=== PATIENT | female | born 1950 | race Caucasian/White ===

== ENCOUNTER → 2016-12-28 | Outpatient (CLI) | payer MEDICAID, MEDICARE ==
--- NOTE | 2017-01-03 11:37 | WOMENS IMAGING REPORT ---
EXAM DESCRIPTION: 3D SCREENING MAMMO BILAT COMPLETED DATE/TIME: 12/28/2016 10:58 am REASON FOR STUDY: Z12.31, ROUTINE SCREENING MAMMO COMPARISON: None. TECHNIQUE: Standard craniocaudal and mediolateral oblique views of each breast recorded using digita l acquisition and breast tomosynthesis. LIMITATIONS: None. FINDINGS: Findings present which are benign by mammographic criteria. No suspicious masses, calcifi cations or architectural distortion. Pertinent benign findings: Benign calcifications. Read with the assistance of CAD. .[facility] - R2 Cenova Version 1.3 .[facility] - R2 Cenova Version 1.3 .[facility] - R2 Cenova Version 2.4 .[facility] [place] Cenova Version 2.4 .[facility] - R2 Tube Wrapper Version 9.2 Benign mammographic findings may include one or more of the following: Smooth masses, popcorn/rim/co arse calcifications, asymmetries, post-procedure changes, and lesions with long-standing stability. IMPRESSION: BENIGN MAMMOGRAPHIC FINDINGS. BIRADS 2 BREAST DENSITY: c. The breasts are heterogeneously dense, which may obscure small masses. BIRAD: 2 BENIGN FINDING(S) RECOMMENDATION: RECOMMENDATION: ROUTINE SCREENING COMMENT: The patient has been notified of the results by letter per SA requirements. Additional no tification policies are in place for contacting patient with suspicious or incomplete findings. Quality ID #[id number]: The [employer] recommends an annual screening mammogram for women aged 40 years or over. This facility utilizes a reminder system to ensure that all patients receive reminder letters, and/or direct phone calls for appointments. This includes reminders for routine scr eening mammograms, diagnostic mammograms, or other Breast Imaging Interventions when appropriate. Th is patient will be placed in the appropriate reminder system. The [employer] (ACR) has developed recommendations for screening MRI of the breast s in certain patient populations, to be used in conjunction with mammography. Breast MRI surveillanc e may be appropriate for women with more than 20% lifetime risk of developing breast cancer as deter mined by genetic testing, significant family history of the disease, or history of mantle radiation f or Hodgkins Disease. ACR Practice Guidelines 2008. DBT Technology DBT is a type of tomographic mammography. With conventional mammography, overlapping breast tissue ma y make lesions difficult to detect, even with good compression. DBT uses an x-ray tube that rotates a round the breast, taking images at different angles. These images are then combined to create thin sl ices of the breast that the radiologist can view as a 3D reconstruction. The Hologic unit can perform full-field digital mammograms (2D imaging); or DBT (3D imaging); or both, in a combination mode that quickly performs both the mammogram and the tomosynthesis scan while the breast is still compressed. PQRS 6045F: Fluoroscopic imaging is not utilized for breast tomosynthesis. TECHNICAL DOCUMENTATION: FINDING NUMBER: (1) ASSESSMENT: (1) JOB ID: [id number] [employer]- All Rights Reserved
== END ==
LOC: RAD 10:32
PROVIDERS: ATTEND Internal Medicine
DX: Z12.31 Encounter for screening mammogram for malignant neoplasm of breast (principal)
CPT/HCPCS: 77063; G0202; 77067

== ENCOUNTER 2018-04-20 07:32 | Day surgery (SDC) | payer MEDICARE ==
[~2018-04-20 07:32] MED LIST: KETOROLAC TROMETHAMINE 0.45% 4 DROP/0.4 ML DROPERETTE OD PRN; MIDAZOLAM 2 MG/2 ML INJ ONE
[2018-04-20] MEDS: TETRACAINE HCL 0.5% OPH SOLN 4 ML OD PRN ×3 (08:05→08:49)
[2018-04-20] MEDS: BESIFLOXACIN HCL 0.6% OPH SUSP 5 ML BOTTLE OD PRN ×4 (08:06→09:12)
[2018-04-20] MEDS: CYCLOPENTOLATE 0.2%/PHENYLEPHRINE 1% OPH SOLN 2 ML OD PRN ×3 (08:06→08:28)
[2018-04-20] MEDS: TROPICAMIDE 1% OPH SOLN 3 ML OD PRN ×3 (08:06→08:28)
[2018-04-20] MEDS ORDERED: CHONDR SU A NA/HYALUR INTRAOC KIT (SURGICARE) ONE (08:10)
[2018-04-20] MEDS ORDERED: EPINEPHRINE INJ/PF 1 MG/1 ML AMPULE ONE (08:10)
[2018-04-20] MEDS ORDERED: LIDOCAINE 1% INJ-PF (10 MG/ML) 30 ML SDV ONE (08:10)
[2018-04-20] MEDS: DORZOLAMIDE HCL 2%/TIMOLOL MALEAT 0.5% OPH SOLN 10 ML ONE ×2 (09:12)
--- NOTE | 2018-04-21 11:47 | [facility] DISCHARGE SUMMARY E ---
[facility] Discharge Summary NAME: MAE VILLAR AGE: 67Y ADMITTED: 04/20/2018 DISCHARGED: 04/20/2018 DIAGNOSIS: CATARACT, RIGHT EYE. SUMMARY: This is a 67-year-old female who underwent cataract extraction, right eye. She underwent surgery because she was having difficulty driving at night secondary to glare from headlights. DISCHARGE INSTRUCTIONS: She should be on a regular diet, no bending at her waist, and no heavy lifting. She should use her Besivance, Ilevro, and Durezol at 3 p.m. and 8 p.m. and sleep with a rigid shield. I will see her for her 1-day postoperative tomorrow. DICTATING PHYSICIAN: JAN SANDOVAL M.D. [id number] PHY#: [id number] ID: [id number] JOB#: [id number] ACCT: [id number] cc:JAN SANDOVAL M.D. >
--- NOTE | 2018-04-21 11:47 | [facility] OPERATIVE REPORT E ---
[facility] Operative Report NAME: MAE VILLAR AGE: 67Y DATE OF SURGERY: 04/20/2018 ROOM: PREOPERATIVE DIAGNOSIS: CATARACT, RIGHT EYE. POSTOPERATIVE DIAGNOSIS: CATARACT, RIGHT EYE. OPERATION: Cataract extraction with insertion of an IOL of the right eye. SURGEON: JAN SANDOVAL M.D. ANESTHESIA: Topical. PROCEDURE: After obtaining appropriate consent, the patient's right eye was prepped and draped in sterile fashion as well as the surgeon in a sterile manner and cataract surgery was started. First a paracentesis blade was used to make a side-port incision. Viscoelastic was used to inflate the anterior chamber. Next a 2.4 mm incision was made with a 2.4 mm blade, clear corneal temporally. A continuous capsulorrhexis was made using a cystotome and Utrata forceps. Following this hydrodissection was carried out to make the lens fully loose and mobile and it was rotated 90 degrees. Following this, a tomepz-gcj-hbvfoan technique was used to phacoemulsify the lens with a CDE of 9.24. The remaining cortex was removed with irrigation/aspiration. Provisc was instilled into the capsular bag to inflate the bag. A SN60WF, 20.5 diopter lens was placed. The remaining viscoelastic material was removed with irrigation/aspiration. Following this, the incision was found to be watertight. Besivance was instilled into the eye and a protective shield was placed over the eye. The patient returned to the postoperative recovery in stable condition. DICTATING PHYSICIAN: AJN SANDOVAL M.D. [id number] PHY#: [id number] ID: [id number] JOB#: [id number] ACCT: [id number] cc:JAN SANDOVAL M.D. >
== END 2018-04-20 09:52 | disposition home or self-care (01) ==
LOC: SC 07:32
PROVIDERS: ATTEND Internal Medicine
DX: H25.813 Combined forms of age-related cataract, bilateral (principal); H35.3131 Nonexudative age-related macular degeneration, bilateral, early dry stage; H52.4 Presbyopia; H04.123 Dry eye syndrome of bilateral lacrimal glands; J45.909 Unspecified asthma, uncomplicated; E11.9 Type 2 diabetes mellitus without complications; I10 Essential (primary) hypertension; F17.210 Nicotine dependence, cigarettes, uncomplicated; M19.90 Unspecified osteoarthritis, unspecified site; Z79.82 Long term (current) use of aspirin; Z88.2 Allergy status to sulfonamides; Z79.899 Other long term (current) drug therapy; Z79.1 Long term (current) use of non-steroidal anti-inflammatories (NSAID); Z79.84 Long term (current) use of oral hypoglycemic drugs; Z79.4 Long term (current) use of insulin
CPT/HCPCS: 66984; 82962; V2632; J2250; J3490 ×3; A9270; J0171; 142

== ENCOUNTER 2018-05-18 07:40 | Day surgery (SDC) | payer MEDICARE ==
[~2018-05-18 07:40] MED LIST changes: +CHONDR SU A NA/HYALUR INTRAOC KIT (SURGICARE) ONE; +EPINEPHRINE INJ/PF 1 MG/1 ML AMPULE ONE; -KETOROLAC TROMETHAMINE 0.45% 4 DROP/0.4 ML DROPERETTE OD PRN; +KETOROLAC TROMETHAMINE 0.45% 4 DROP/0.4 ML DROPERETTE OS PRN; +LIDOCAINE 1% INJ-PF (10 MG/ML) 30 ML SDV ONE; -MIDAZOLAM 2 MG/2 ML INJ ONE
[2018-05-18] MEDS: TROPICAMIDE 1% OPH SOLN 3 ML OS PRN ×3 (08:35→08:55)
[2018-05-18] MEDS: CYCLOPENTOLATE 0.2%/PHENYLEPHRINE 1% OPH SOLN 2 ML OS PRN ×3 (08:35→08:55)
[2018-05-18] MEDS: TETRACAINE HCL 0.5% OPH SOLN 4 ML OS PRN ×3 (08:35→09:07)
[2018-05-18] MEDS: BESIFLOXACIN HCL 0.6% OPH SUSP 5 ML BOTTLE OS PRN ×4 (08:36→09:26)
[2018-05-18] MEDS ORDERED: MIDAZOLAM 2 MG/2 ML INJ ONE (09:01)
--- NOTE | 2018-05-18 19:32 | [facility] DISCHARGE SUMMARY E ---
[facility] Discharge Summary NAME: MAE VILLAR AGE: 67Y ADMITTED: 05/18/2018 DISCHARGED: 05/18/2018 HOSPITAL COURSE: This is a 67-year-old patient who underwent cataract extraction of the left eye. DIAGNOSIS: CATARACT, LEFT EYE. She underwent surgery because she was having difficulty seeing words on the television. DISCHARGE INSTRUCTIONS: She should be on a regular diet. No bending at her waist, no heavy lifting. She should use her Vigamox, ketorolac, and Predforte at 3 p.m. and 8 p.m. and sleep with a rigid shield. I will see her for her 1 day postoperative tomorrow. DICTATING PHYSICIAN: JAN SANDOVAL M.D. [id number] PHY#: [id number] ID: [id number] JOB#: [id number] ACCT: [id number] cc:JAN SANDOVAL M.D. >
--- NOTE | 2018-05-18 19:33 | [facility] OPERATIVE REPORT E ---
[facility] Operative Report NAME: MAE VILLAR AGE: 67Y DATE OF SURGERY: 05/18/2018 ROOM: PREOPERATIVE DIAGNOSIS: CATARACT, LEFT EYE. POSTOPERATIVE DIAGNOSIS: CATARACT, LEFT EYE. OPERATION: Cataract extraction with insertion of an IOL of the left eye. SURGEON: JAN SANDOVAL M.D. ANESTHESIA: Topical. PROCEDURE: After obtaining appropriate consent, the patient's left eye was prepped and draped in sterile fashion as well as the surgeon in a sterile manner and cataract surgery was started. First a paracentesis blade was used to make a side-port incision. Viscoelastic was used to inflate the anterior chamber. Next a 2.4 mm incision was made with a 2.4 mm blade, clear corneal temporally. A continuous capsulorrhexis was made using a cystotome and Utrata forceps. Following this hydrodissection was carried out to make the lens fully loose and mobile and it was rotated 90 degrees. Following this, a wunonk-otu-jkkwisg technique was used to phacoemulsify the lens with a CDE of 7.01. The remaining cortex was removed with irrigation/aspiration. Provisc was instilled into the capsular bag to inflate the bag. A SN60WF, 20.5 diopter lens was placed. The remaining viscoelastic material was removed with irrigation/aspiration. Following this, the incision was found to be watertight. Besivance was instilled into the eye and a protective shield was placed over the eye. The patient returned to the postoperative recovery in stable condition. DICTATING PHYSICIAN: JAN SANDOVAL M.D. [id number] PHY#: [id number] ID: [id number] JOB#: [id number] ACCT: [id number] cc:JAN SANDOVAL M.D. >
== END 2018-05-18 10:04 | disposition home or self-care (01) ==
LOC: SC 07:40
PROVIDERS: ATTEND Internal Medicine
DX: H25.812 Combined forms of age-related cataract, left eye (principal); Z96.1 Presence of intraocular lens; Z79.02 Long term (current) use of antithrombotics/antiplatelets; M19.90 Unspecified osteoarthritis, unspecified site; Z79.1 Long term (current) use of non-steroidal anti-inflammatories (NSAID); I10 Essential (primary) hypertension; Z79.899 Other long term (current) drug therapy; Z88.2 Allergy status to sulfonamides; Z79.82 Long term (current) use of aspirin; F17.210 Nicotine dependence, cigarettes, uncomplicated
CPT/HCPCS: 66984; 82962; V2632; J2250; J3490 ×3; A9270; J0171; 142

== ENCOUNTER 2018-07-05 11:54 | Observation (INO) | payer MEDICARE ==
--- NOTE | 2018-07-05 13:06 | ER Document Report ---
ED Medical Screen (RME) - General Chief Complaint: Ear Pain Stated Complaint: DIRECT ADMIT Time Seen by Provider: 07/05/18 13:03 Primary Care Provider: ALFREDO TORRES MD [Primary Care Provider] - Follow up as needed Notes: Patient is a direct admission for purulent ear drainage. Hospital is full, there are no beds therefore the patient is brought to the emergency room. She does have admission orders with her. I have greeted and performed a rapid initial assessment of this patient. A comprehensive ED assessment and evaluation of the patient, analysis of test results and completion of the medical decision making process will be conducted by additional ED providers. TRAVEL OUTSIDE OF THE [place] IN LAST 30 DAYS: No COUNTRY TRAVELED TO/FROM: [facility] - Related Data Allergies/Adverse Reactions: Sulfa (Sulfonamide Antibiotics) Allergy (Verified 07/05/18 12:08) Past Medical History - Past Medical History Cardiac Medical History: Reports: Hx Coronary Artery Disease, Hx Hypercholesterolemia, Hx Hypertension Denies: Hx Atrial Fibrillation, Hx Congestive Heart Failure, Hx Heart Attack - THROWING ENZYMES, Hx Peripheral Vascular Disease, Hx Pulmonary Embolism, Hx Heart Murmur Pulmonary Medical History: Reports: Hx Asthma - AFTER MOVING TO [place], Hx Bronchitis, Hx COPD, Hx Pneumonia Denies: Hx Respiratory Failure, Hx Sleep Apnea, Hx Tuberculosis Neurological Medical History: Denies: Hx Cerebrovascular Accident, Hx Seizures Endocrine Medical History: Reports: Hx Diabetes Mellitus Type 2 - insulin dependent. Denies: Hx Graves' Disease, Hx Hyperthyroidism, Hx Hypothyroidism Renal/ Medical History: Denies: Hx End Stage Renal Disease, Hx Kidney Stones, Hx Ovarian Cysts, Hx Peritoneal Dialysis, Hx Pelvic Inflammatory Disease Malignancy Medical History: Denies: Hx Breast Cancer, Hx Cervical Cancer, Hx Leukemia, Hx Lung Cancer, Hx Ovarian Cancer GI Medical History: Denies: Hx Hepatitis, Hx Hiatal Hernia, Hx Pancreatitis, Hx Ulcer Psychiatric Medical History: Reports: Hx Anxiety Denies: Hx Bipolar Disorder, Hx Dementia, Hx Depression, Hx Post Traumatic S tress Disorder, Hx Schizophrenia Traumatic Medical History: Denies: Hx Fractures Infectious Medical History: Denies: Hx Hepatitis, Hx HIV Past Surgical History: Reports: Hx Cardiac Catheterization, Hx Cardiac Surgery - stent x1, Hx Tonsillectomy, Hx Tubal Ligation, Hx Vascular Surgery - stent placement left artery. Denies: Hx Appendectomy, Hx Bowel Surgery, Hx Section, Hx Cholecystectomy, Hx Colostomy, Hx Coronary Artery Bypass Graft, Hx Gastric Bypass Surgery, Hx Herniorrhaphy, Hx Hysterectomy, Hx Mastectomy, Hx Open Heart Surgery - STENTS-2009,2016, Hx Pacemaker - Immunizations Hx Diphtheria, Pertussis, Tetanus Vaccination: Yes Physical Exam - Vital signs Vitals: Temp Pulse Resp BP Pulse Ox 98.0 F 73 18 151/65 H 98 07/05/18 12:17 07/05/18 12:17 07/05/18 12:17 07/05/18 12:17 07/05/18 12:17 Course - Vital Signs Vital signs: Temp Pulse Resp BP Pulse Ox 98.0 F 73 18 151/65 H 98 07/05/18 12:17 07/05/18 12:17 07/05/18 12:17 07/05/18 12:17 07/05/18 12:17 Doctor's Discharge - Discharge Referrals: ALFREDO TORRES MD [Primary Care Provider] - Follow up as needed
[2018-07-05 14:24] LABS: ABSOLUTE LYMPHOCYTES (AUTO) 1.1 10^3/uL (0.5-4.7); ABSOLUTE MONOCYTES (AUTO) 0.7 10^3/uL (0.1-1.4); ABSOLUTE NEUT (AUTO) 5.5 10^3/uL (1.7-8.2); BASOPHILS % (AUTO) 0.4 % (0-2); EOSINOPHILS % (AUTO) 0.5 % (0-6); HEMATOCRIT 42.8 % (36.0-47.0); HEMOGLOBIN 14.6 g/dL (12.0-15.5); LYMPHOCYTES % (AUTO) 14.8 % (13-45); MEAN CORPUSCULAR HEMOGLOBIN 30.5 pg (27.0-33.4); MEAN CORPUSCULAR HGB CONC 34.2 g/dL (32.0-36.0); MEAN CORPUSCULAR VOLUME 89 fl (80-97); MONOCYTES % (AUTO) 9.9 % (3-13); PLATELET COUNT 162 10^3/uL (150-450); RED BLOOD COUNT 4.79 10^6/uL (3.72-5.28); RED CELL DISTRIBUTION WIDTH 14.4 % (11.5-14.0); SEGMENTED NEUTROPHILS % (AUTO) 74.4 % (42-78); TOTAL CELLS COUNTED % (AUTO) 100 %; WHITE BLOOD COUNT 7.4 10^3/uL (4.0-10.5)
[2018-07-05 14:39] LABS: ALANINE AMINOTRANSFERASE 24 U/L (9-52); ALBUMIN 3.6 g/dL (3.5-5.0); ALKALINE PHOSPHATASE 109 U/L (38-126); ANION GAP 7 (5-19); ASPARTATE AMINO TRANSFERASE 16 U/L (14-36); BILIRUBIN,DIRECT 0.1 mg/dL (0.0-0.4); BILIRUBIN,TOTAL 0.4 mg/dL (0.2-1.3); BLOOD UREA NITROGEN 13 mg/dL (7-20); C-REACTIVE PROTEIN 56.5 mg/L (<10.0); CALCIUM 8.6 mg/dL (8.4-10.2); CARBON DIOXIDE 28 mmol/L (22-30); CHLORIDE 98 mmol/L (98-107); POTASSIUM 4.5 mmol/L (3.6-5.0); SODIUM 133.2 mmol/L (137-145); TOTAL PROTEIN 5.8 g/dL (6.3-8.2)
[2018-07-05 14:44] LABS: GLUCOSE 492 mg/dL (75-110)
[2018-07-05] MEDS ORDERED: GLUCAGON,HUMAN RECOMB 1 MG INJ IM PRN (14:44)
[2018-07-05] MEDS ORDERED: DEXTROSE 50%-WATER 25 GM/50 ML DISP.SYRIN IV PRN ×2 (14:44)
[2018-07-05] MEDS ORDERED: DEXTROSE 40% GEL 15 GM TUBE PO PRN ×2 (14:44)
[2018-07-05] MEDS ORDERED: (PENDING PHARMACY ID) (Liraglutide [Victoza 2-Pak] 1.8 MG) SQ SCH (14:45)
[2018-07-05] MEDS ORDERED: NITROGLYCERIN 0.4 MG/TAB 25 TAB/BOTTLE SL SCH (14:45)
[2018-07-05] MEDS ORDERED: (PENDING PHARMACY ID) (Gabapentin [Gabapentin] 300 MG) PO SCH (14:45)
[2018-07-05] MEDS ORDERED: PIOGLITAZONE HCL 30 MG TABLET PO SCH (14:45)
[2018-07-05] MEDS ORDERED: MONTELUKAST SODIUM 10 MG TABLET PO SCH (15:00)
[2018-07-05 15:01] LABS: ERYTHROCYTE SEDIMENTATION RATE 39 mm/hr (0-30)
--- NOTE | 2018-07-05 15:35 | RADIOLOGY REPORT (SQ) ---
EXAM DESCRIPTION: CT ORBIT/SELLA WITHOUT COMPLETED DATE/TIME: 07/05/2018 2:45 pm REASON FOR STUDY: severe purulent otitis media COMPARISON: None. TECHNIQUE: Noncontrasted thin section axial images through the temporal bones and skull base were ob tained and reviewed at bone windows and bone algorithm with coronal and sagittal reconstructions. All CT scanners at this facility use dose modulation, iterative reconstruction, and/or weight based d osing when appropriate to reduce radiation dose to as low as reasonably achievable (ALARA). [facility]: Dose Right [facility]: CareDose [facility]: Dose Right [facility]: Teradose 4D [facility]: Smart Technologies RADIATION DOSE: CT Rad equipment meets quality standard of care and radiation dose reduction techniq ues were employed. CTDIvol: 60.6 mGy. DLP: 727 mGy-cm. mGy. LIMITATIONS: None. FINDINGS: RIGHT SIDE: EXTERNAL AUDITORY CANAL: Widely patent. TYMPANIC MEMBRANE: No masses, thickening or medial retraction. OSSICLES AND MIDDLE EAR CAVITY: Normal ossicles. No middle ear masses or fluid. INNER EAR STRUCTURES: Normal vestibule and cochlea. Normal aqueducts. There is a 6 x 6 mm right jug ular diverticulum protruding off the superior aspect of the right jugular bulb. This abuts the right vestibular aqueduct and posterior semi circular canal without definite bony dehiscence. INTERNAL AUDITORY CANAL: Normal bony canal without narrowing or widening. No calcified or ossified m asses. TEMPOROMANDIBULAR JOINT: Normal. MASTOID AIR CELLS: Clear. LEFT SIDE: EXTERNAL AUDITORY CANAL: Diffuse external otitis with edema along the external auditory canal soft ti ssues. TYMPANIC MEMBRANE: There is fluid/ debris abutting the posterior half of the tympanic membrane which is not well seen. Anterior tympanic membrane intact, medially retracted OSSICLES AND MIDDLE EAR CAVITY: Middle ear cavity is partially opacified with fluid/debris layering d ependently in the posterior aspect of the middle ear cavity. This fills thepyramidal recess and epit ympanum, encasing the ossicles without ossicular erosion. INNER EAR STRUCTURES: Normal vestibule and cochlea. Normal aqueducts. INTERNAL AUDITORY CANAL: Normal bony canal without narrowing or widening. No calcified or ossified m asses. TEMPOROMANDIBULAR JOINT: Normal. MASTOID AIR CELLS: Small amount of fluid in the left mastoid air cells CENTRAL SKULL BASE: Normal foramina. No lytic or blastic lesions. INFERIOR BRAIN: Not well seen due to technique LIMITED VIEW OF PARANASAL SINUSES IN THE FIELD OF VIEW: Diffuse mucous membrane thickening throughout the ethmoid, sphenoid, and maxillary sinuses. IMPRESSION: Left otitis externa and otitis media. TECHNICAL DOCUMENTATION: JOB ID: [id number] Quality ID # [id number]: Final reports with documentation of one or more dose reduction techniques (e.g., Au tomated exposure control, adjustment of the mA and/or kV according to patient size, use of iterative reconstruction technique) 2010 [employer]- All Rights Reserved Reading location - IP/workstation name: [email or web address]
[2018-07-05] MEDS ORDERED: NORMAL SALINE 1000 ML 1,000 ML IV PRN (16:33)
[2018-07-05] MEDS ORDERED: NITROGLYCERIN 0.4 MG/TAB 25 TAB/BOTTLE SL PRN (16:54)
--- NOTE | 2018-07-05 16:57 | PDOC H&P ---
History of Present Illness Admission Date/PCP: 07/05/18 13:39 ALFREDO TORRES MD History of Present Illness: MAE VILLAR is a 67 year old female She came to the office today for evaluation of discharge from the left ear, she stated that she had flulike symptoms couple of days ago and ultimately it culminated into discharge from the left ear. When I inspected the ear in the office there was severe purulence emanating from the auditory canal, I was particularly concerned that the purulence may be extensive with involvement of the inner ear structure, I could not completely rule out perforation of the tympanic membrane, I felt the best approach is to admit her to the hospital for observation and evaluation. She has risk factors for complication she is a diabetic poorly controlled and also tobacco abuser. CT of the orbits and sella was obtained it demonstrated diffuse external otitis with edema along the external auditory canal. There is a fluid/debris abutting the posterior of the tympanic membrane which was not well visualized anterior tympanic membrane was intact. The middle ear cavity is partially opacified with fluid/debris layering dependently in the posterior aspect of the middle ear cavity Past Medical History Cardiac Medical History: Reports: Coronary Artery Disease, Hyperlipidema, Hypertension Pulmonary Medical History: Reports: Asthma - AFTER MOVING TO [place], Bronchitis, Chronic Obstructive Pulmonary Disease (COPD), Pneumonia Endocrine Medical History: Reports: Diabetes Mellitus Type 2 - insulin dependent Infectious Medical History: Denies: HIV Past Surgical History Past Surgical History: Reports: Cardiac Catheterization, Tonsillectomy, Tubal Ligation, Vascular Surgery - stent placement left artery Social History Smoking Status: Current Every Day Smoker Cigarettes Packs Per Day: 0.5 Number of Years Smokin Last Time Smoked: 11: 07/05/2018 Hx Recreational Drug Use: No Drugs: None Hx Prescription Drug Abuse: No Family History Family History: Reviewed & Not Pertinent Parental Family History Reviewed: Yes Children Family History Reviewed: Yes Sibling(s) Family History Reviewed.: Yes Medication/Allergy Home Medications: Ezetimibe [Zetia] 10 mg PO DAILY 04/08/15 Gabapentin 300 mg PO Q8 04/08/15 Insulin Aspart [Novolog Flexpen] 0 units SQ BID PRN 04/08/15 Insulin Detemir [Levemir Flextouch] 40 units SQ DAILY 04/08/15 Lisinopril 20 mg PO DAILY 04/08/15 Metoprolol Succinate 50 mg PO DAILY 04/08/15 Montelukast Sodium [Singulair] 10 mg PO DAILYP PRN 04/08/15 Nitroglycerin [Nitrostat 0.4 mg (1/150 Gr) Tabs 25/Bottle] 0.4 mg SL Q5M 04/08/15 Aspirin [Aspirin 81 mg Chewable Tablet] 81 mg PO DAILY 04/13/18 Clopidogrel Bisulfate [Plavix 75 mg Tablet] 75 mg PO DAILY 04/13/18 Pioglitazone HCl 30 mg PO DAILY 04/13/18 Atorvastatin Calcium [Lipitor 40 mg Tablet] 40 mg PO QHS 07/05/18 Hydrochlorothiazide [Hydrodiuril 25 mg Tablet] 25 mg PO QAM 07/05/18 Isosorbide Mononitrate [Imdur 30 mg Tablet.er] 30 mg PO DAILY 07/05/18 Liraglutide [Victoza 2-Gomez] 1.8 mg SQ DAILY 07/05/18 Ranolazine [Ranexa 500 mg Tab.sr] mg PO 07/05/18 Allergies/Adverse Reactions: Sulfa (Sulfonamide Antibiotics) Allergy (Verified 07/05/18 12:08) Review of Systems Constitutional: ABSENT: chills, fever(s), headache(s), weight gain, weight loss Eyes: ABSENT: visual disturbances Ears: PRESENT: other - See H&P. ABSENT: hearing changes Cardiovascular: ABSENT: chest pain, dyspnea on exertion, edema, orthropnea, palpitations Respiratory: ABSENT: cough, hemoptysis Gastrointestinal: ABSENT: abdominal pain, constipation, diarrhea, hematemesis, hematochezia, nausea, vomiting Genitourinary: ABSENT: dysuria, hematuria Musculoskeletal: ABSENT: joint swelling Integumentary: ABSENT: rash, wounds Neurological: ABSENT: abnormal gait, abnormal speech, confusion, dizziness, focal weakness, syncope Psychiatric: ABSENT: anxiety, depression, homidical ideation, suicidal ideation Endocrine: ABSENT: cold intolerance, heat intolerance, menstrual abnormalities, polydipsia, polyuria Hematologic/Lymphatic: ABSENT: easy bleeding, easy bruising, lymphadenopathy Physical Exam Vital Signs: Temp Pulse Resp BP Pulse Ox 98.0 F 73 18 151/65 H 98 07/05/18 12:17 07/05/18 12:17 07/05/18 12:17 07/05/18 12:17 07/05/18 12:17 Intake & Output 07/04/18 07/05/18 07/06/18 06:59 06:59 06:59 Weight 73 kg General appearance: PRESENT: no acute distress, well-developed, well-nourished Head exam: PRESENT: atraumatic, normocephalic Eye exam: PRESENT: conjunctiva pink, EOMI, PERRLA. ABSENT: scleral icterus Ear exam: PRESENT: drainage, other - Purulent discharge from the left auditory canal Mouth exam: PRESENT: moist, tongue midline Neck exam: PRESENT: full ROM Respiratory exam: PRESENT: clear to auscultation denton Cardiovascular exam: PRESENT: RRR, +S1, +S2 Pulses: PRESENT: normal dorsalis pedis pul, +2 pedal pulses bilateral Vascular exam: PRESENT: normal capillary refill GI/Abdominal exam: PRESENT: normal bowel sounds, soft Rectal exam: PRESENT: deferred Neurological exam: PRESENT: alert, awake, oriented to person, oriented to place, oriented to time, oriented to situation, CN II-XII grossly intact Psychiatric exam: PRESENT: appropriate affect, normal mood Skin exam: PRESENT: dry, intact, warm Results Laboratory Results: 07/05/18 14:09 07/05/18 14:09 07/05/18 07/05/18 14:09 14:09 WBC 7.4 RBC 4.79 Hgb 14.6 Hct 42.8 MCV 89 MCH 30.5 MCHC 34.2 RDW 14.4 H Plt Count 162 Seg Neutrophils % 74.4 Lymphocytes % 14.8 Monocytes % 9.9 Eosinophils % 0.5 Basophils % 0.4 Absolute Neutrophils 5.5 Absolute Lymphocytes 1.1 Absolute Monocytes 0.7 Absolute Eosinophils 0.0 Absolute Basophils 0.0 Sodium 133.2 L Potassium 4.5 Chloride 98 Carbon Dioxide 28 Anion Gap 7 BUN 13 Creatinine 0.60 Est GFR ( Amer) > 60 Est GFR (Non-Af Amer) > 60 Glucose 492 H* Calcium 8.6 Total Bilirubin 0.4 AST 16 ALT 24 Alkaline Phosphatase 109 C-Reactive Protein 56.5 H Total Protein 5.8 L Albumin 3.6 Impressions: Orbit CT 07/05/18 00:00 IMPRESSION: Left otitis externa and otitis media. Assessment & Plan - Diagnosis (1) Acute purulent otitis media Qualifiers: Laterality: left Recurrence: non-recurrent Spontaneous tympanic membrane rupture: without spontaneous rupture Qualified Code(s): H66.002 - Acute suppurative otitis media without spontaneous rupture of ear drum, left ear Is this a current diagnosis for this admission?: Yes Plan: She has severe purulent otitis media and externa, start intravenous Unasyn this will cover potential pathogens especially Streptococcus, anaerobes, gram- negative she has type 1 diabetes mellitus (2) Otitis externa of left ear Qualifiers: Otitis externa type: other infective Chronicity: acute Qualified Code(s): H60.392 - Other infective otitis externa, left ear Is this a current diagnosis for this admission?: Yes (3) Type 1 diabetes mellitus Qualifiers: Diabetes mellitus complication status: with hyperglycemia Qualified Code(s): E10.65 - Type 1 diabetes mellitus with hyperglycemia Is this a current diagnosis for this admission?: Yes Plan: The serum glucose is 492, start IV normal saline continue insulin coverage (4) COPD (chronic obstructive pulmonary disease) Qualifiers: COPD type: emphysema Emphysema type: unspecified Qualified Code(s): J43.9 - Emphysema, unspecified Is this a current diagnosis for this admission?: Yes (5) Hypertension Qualifiers: Hypertension type: essential hypertension Qualified Code(s): I10 - Essential (primary) hypertension Is this a current diagnosis for this admission?: Yes
[2018-07-05] MEDS: ASPIRIN 81 MG TABLET, CHEWABLE PO SCH (17:02)
[2018-07-05] MEDS: HYDROCHLOROTHIAZIDE 25 MG TABLET PO SCH (17:02)
[2018-07-05] MEDS: INSULIN LISPRO 100 UNIT/ML 3 ML VIAL SUBCUT PRN ×2 (17:12→23:02)
[2018-07-05] MEDS: KETOROLAC TROMETHAMINE INJ/PF 30 MG/1 ML SDV IV SCH (17:14)
[2018-07-05] MEDS ORDERED: ASPIRIN 81 MG TABLET, CHEWABLE PO ONE (17:15)
[2018-07-05] MEDS ORDERED: METOPROLOL SUCCINATE 25 MG TAB.SR.24H PO ONE (17:15)
[2018-07-05] MEDS ORDERED: CLOPIDOGREL BISULFATE 75 MG TABLET PO ONE (17:15)
[2018-07-05] MEDS ORDERED: LISINOPRIL 10 MG TABLET PO ONE ×2 (17:15)
[2018-07-05] MEDS: INSULIN DETEMIR 100 UNIT/ML 3 ML PEN SUBCUT SCH (17:44)
[2018-07-05] MEDS: AMPICILLIN SODIUM/SULBACTAM NA 3 GM in NORMAL SALINE 100 ML IV SCH (17:55)
[2018-07-05] MEDS: PIOGLITAZONE HCL 30 MG TABLET PO SCH (17:59)
[2018-07-05] MEDS ORDERED: EZETIMIBE 10 MG TABLET PO ONE (18:00)
[2018-07-05] MEDS: CLOPIDOGREL BISULFATE 75 MG TABLET PO SCH (18:09)
[2018-07-05] MEDS: LISINOPRIL 10 MG TABLET PO SCH (20:16)
[2018-07-05] MEDS: EZETIMIBE 10 MG TABLET PO SCH (20:17)
[2018-07-05] MEDS: METOPROLOL SUCCINATE 25 MG TAB.SR.24H PO SCH (20:17)
[2018-07-05] MEDS ORDERED: ATORVASTATIN CALCIUM 40 MG TABLET PO SCH (22:00)
[2018-07-05] MEDS: GABAPENTIN 300 MG CAPSULE PO SCH (23:02)
[2018-07-06] MEDS: AMPICILLIN SODIUM/SULBACTAM NA 3 GM in NORMAL SALINE 100 ML IV SCH ×4 (01:02→17:43)
[2018-07-06] MEDS: KETOROLAC TROMETHAMINE INJ/PF 30 MG/1 ML SDV IV SCH ×3 (01:02→12:36)
[2018-07-06] MEDS: ENOXAPARIN SODIUM INJ 40 MG/0.4 ML DISP.SYRIN SUBCUT SCH ×2 (01:07→10:49)
[2018-07-06] MEDS: GABAPENTIN 300 MG CAPSULE PO SCH ×2 (06:10→14:15)
[2018-07-06] MEDS: INSULIN LISPRO 100 UNIT/ML 3 ML VIAL SUBCUT PRN ×3 (08:03→17:45)
[2018-07-06] MEDS: HYDROCHLOROTHIAZIDE 25 MG TABLET PO SCH (08:07)
[2018-07-06] MEDS: PIOGLITAZONE HCL 30 MG TABLET PO SCH (10:50)
[2018-07-06] MEDS: ASPIRIN 81 MG TABLET, CHEWABLE PO SCH (10:50)
[2018-07-06] MEDS: INSULIN DETEMIR 100 UNIT/ML 3 ML PEN SUBCUT SCH (10:51)
[2018-07-06] MEDS: METOPROLOL SUCCINATE 25 MG TAB.SR.24H PO SCH (10:55)
[2018-07-06] MEDS: EZETIMIBE 10 MG TABLET PO SCH (10:57)
[2018-07-06] MEDS: CLOPIDOGREL BISULFATE 75 MG TABLET PO SCH (10:58)
[2018-07-06] MEDS: LISINOPRIL 10 MG TABLET PO SCH (11:03)
--- NOTE | 2018-07-06 18:04 | PDOC DISCHARGE SUMMARY ---
General - Admit/Disc Date/PCP Admission Date/Primary Care Provider: 07/05/18 13:39 ALFREDO TORRES MD Discharge Date: 07/06/18 - Discharge Diagnosis (1) Acute purulent otitis media Is this a current diagnosis for this admission?: Yes (2) Otitis externa of left ear Is this a current diagnosis for this admission?: Yes (3) Type 1 diabetes mellitus Is this a current diagnosis for this admission?: Yes (4) COPD (chronic obstructive pulmonary disease) Is this a current diagnosis for this admission?: Yes (5) Hypertension Is this a current diagnosis for this admission?: Yes (6) Chronic cough Is this a current diagnosis for this admission?: Yes Summary: Discontinue lisinopril, start valsartan - Additional Information Prescriptions: Amox Tr/Potassium Clavulanate [Augmentin 875-125 mg Tablet] 1 tab PO BID #20 tablet Valsartan 320 mg PO DAILY #90 tablet Home Medications: Ezetimibe [Zetia] 10 mg PO DAILY 04/08/15 Gabapentin 300 mg PO Q8 04/08/15 Insulin Aspart [Novolog Flexpen] 0 units SQ BID PRN 04/08/15 Insulin Detemir [Levemir Flextouch] 40 units SQ DAILY 04/08/15 Metoprolol Succinate 50 mg PO DAILY 04/08/15 Montelukast Sodium [Singulair] 10 mg PO DAILYP PRN 04/08/15 Nitroglycerin [Nitrostat 0.4 mg (1/150 Gr) Tabs 25/Bottle] 0.4 mg SL Q5M 04/08/15 Aspirin [Aspirin 81 mg Chewable Tablet] 81 mg PO DAILY 04/13/18 Clopidogrel Bisulfate [Plavix 75 mg Tablet] 75 mg PO DAILY 04/13/18 Pioglitazone HCl 30 mg PO DAILY 04/13/18 Atorvastatin Calcium [Lipitor 40 mg Tablet] 40 mg PO QHS 07/05/18 Hydrochlorothiazide [Hydrodiuril 25 mg Tablet] 25 mg PO QAM 07/05/18 Liraglutide [Victoza 2-Gomez] 1.8 mg SQ DAILYP PRN 07/05/18 Amox Tr/Potassium Clavulanate [Augmentin 875-125 mg Tablet] 1 tab PO BID #20 tablet 07/06/18 Valsartan 320 mg PO DAILY #90 tablet 07/06/18 History of Present Illness History of Present Illness: MAE VILLAR is a 67 year old female She came to the office today for evaluation of discharge from the left ear, she stated that she had flulike symptoms couple of days ago and ultimately it culminated into discharge from the left ear. When I inspected the ear in the office there was severe purulence emanating from the auditory canal, I was particularly concerned that the purulence may be extensive with involvement of the inner ear structure, I could not completely rule out perforation of the tympanic membrane, I felt the best approach is to admit her to the hospital for observation and evaluation. She has risk factors for complication she is a diabetic poorly controlled and also tobacco abuser. CT of the orbits and sella was obtained it demonstrated diffuse external otitis with edema along the external auditory canal. There is a fluid/debris abutting the posterior of the tympanic membrane which was not well visualized anterior tympanic membrane was intact. The middle ear cavity is partially opacified with fluid/debris layering dependently in the posterior aspect of the middle ear cavity Hospital Course Hospital Course: Patient was admitted for the management of severe purulent acute otitis media and externa, she was treated with intravenous Unasyn every 6 hours, she was admitted for observation, she complained of chronic cough, she is advised to stop lisinopril this was replaced with valsartan. Physical Exam Vital Signs: Temp Pulse Resp BP Pulse Ox 98.0 F 63 16 141/51 H 94 07/06/18 16:01 07/06/18 16:01 07/06/18 16:01 07/06/18 16:01 07/06/18 16:01 Intake & Output 07/05/18 07/06/18 07/07/18 06:59 06:59 06:59 Intake Total 866 200 Output Total 500 500 Balance 366 -300 Weight 72.1 kg General appearance: PRESENT: no acute distress, well-developed, well-nourished Head exam: PRESENT: atraumatic, normocephalic Eye exam: PRESENT: conjunctiva pink, EOMI, PERRLA Ear exam: PRESENT: other - Less drainage from the left ear Mouth exam: PRESENT: moist, tongue midline Neck exam: PRESENT: full ROM Respiratory exam: PRESENT: clear to auscultation denton Cardiovascular exam: PRESENT: RRR, +S1, +S2 Pulses: PRESENT: normal dorsalis pedis pul, +2 pedal pulses bilateral Vascular exam: PRESENT: normal capillary refill GI/Abdominal exam: PRESENT: diminished bowel sounds, normal bowel sounds, soft Rectal exam: PRESENT: deferred Neurological exam: PRESENT: alert, awake, oriented to person, oriented to place, oriented to time, oriented to situation, CN II-XII grossly intact Psychiatric exam: PRESENT: appropriate affect, normal mood Skin exam: PRESENT: dry, intact, warm Results Laboratory Results: 07/05/18 14:09 07/05/18 14:09 Impressions: Orbit CT 07/05/18 00:00 IMPRESSION: Left otitis externa and otitis media. Qualifiers - * PATIENT BEING DISCHARGED WITH ANY OF THE FOLLOWING DIAGNOSIS: No
[2018-07-06 19:20] VITALS: BP 114/42
== END 2018-07-06 19:58 | disposition home or self-care (01) ==
LOC: ER 11:54 → EH 13:39 → 2S 14:59
PROVIDERS: ADMIT Internal Medicine; ATTEND Internal Medicine
DX: H66.002 Acute suppurative otitis media without spontaneous rupture of ear drum, left ear (principal); H60.392 Other infective otitis externa, left ear; E10.65 Type 1 diabetes mellitus with hyperglycemia; I25.10 Atherosclerotic heart disease of native coronary artery without angina pectoris; J43.9 Emphysema, unspecified; I10 Essential (primary) hypertension; R05 Cough; F17.210 Nicotine dependence, cigarettes, uncomplicated; Z79.4 Long term (current) use of insulin; Z95.5 Presence of coronary angioplasty implant and graft; Z79.899 Other long term (current) drug therapy; Z79.82 Long term (current) use of aspirin; Z79.02 Long term (current) use of antithrombotics/antiplatelets
CPT/HCPCS: 36415; 87205; 87070; 82962 ×2; 85025; 85652; 86140; 87077; 80076; 80048; 87186; 83036; 70480; A9270 ×16; J0295 ×2; J1885 ×2; J1650; G0378; J1815; J3490

== ENCOUNTER 2020-01-11 13:29 | Emergency (ER) | payer MEDICARE ==
[2020-01-11] MEDS ORDERED: IBUPROFEN 800 MG TABLET PO ONE (13:57)
--- NOTE | 2020-01-11 13:58 | ER Document Report ---
ED Flu Like - General Chief Complaint: flu like symptoms Stated Complaint: HEADACHE/NAUSEA/VOMITING Time Seen by Provider: 01/11/20 13:40 Primary Care Provider: ALFREDO TORRES MD [Primary Care Provider] - Follow up as needed Mode of Arrival: Ambulatory Information source: Patient Notes: 69-year-old female presented to ED for complaint of runny nose congestion h eadache body aches nausea with no fever. She is alert oriented respirations regular nonlabored speaking in full sentences. She states she was told that with her symptoms and her medical history she needed to come in and get tested for the flu strep and the COVID. The patient was evaluated during the global Covid 19 pandemic, and that diagnosis was suspected/considered upon their initial presentation. Their evaluation, treatment and testing was consistent with current guidelines for patients who present with complaints or symptoms that may be related to Covid 19. TRAVEL OUTSIDE OF THE [place] IN LAST 30 DAYS: No - HPI Onset: This morning Quality of pain: Achy Severity: Moderate Pain Level: 3 CO exposure: No Associated symptoms: Body/muscle aches, Nonproductive cough, Headache, Rhinnorhea, Sinus pain/drainage. denies: Fever Similar symptoms previously: Yes Recently seen / treated by doctor: No - Related Data Allergies/Adverse Reactions: Sulfa (Sulfonamide Antibiotics) Allergy (Verified 01/11/20 13:58) Past Medical History - General Information source: Patient - Social History Smoking Status: Current Every Day Smoker Cigarette use (# per day): Yes - 5 cigarettes a day Frequency of alcohol use: None Drug Abuse: None Lives with: Family Family History: Reviewed & Not Pertinent - Past Medical History Cardiac Medical History: Reports: Hx Coronary Artery Disease, Hx Heart Attack - Elevated enzymes required cardiac catheter and stents, Hx Hypercholesterolemia, Hx Hypertension Pulmonary Medical History: Reports: Hx Asthma - AFTER MOVING TO [place], Hx Bronchitis, Hx COPD, Hx Pneumonia EENT Medical History: Reports: None Neurological Medical History: Reports: None Endocrine Medical History: Reports: Hx Diabetes Mellitus Type 2 - insulin dependent Renal/ Medical History: Reports: None Malignancy Medical History: Reports: None GI Medical History: Reports: Hx Colonoscopy Musculoskeletal Medical History: Reports None Skin Medical History: Reports None Psychiatric Medical History: Reports: Hx Anxiety Traumatic Medical History: Reports: None Infectious Medical History: Reports: None Past Surgical History: Reports: Hx Bowel Surgery - Bowel suppression on ureters daily moved bowels started bladder and ureters, Hx Cardiac Catheterization - X3, Hx Cardiac Surgery - L stent x2, R stent x1, Hx Tonsillectomy, Hx Tubal Ligation, Hx Vascular Surgery - stent placement left artery - Immunizations Hx Diphtheria, Pertussis, Tetanus Vaccination: Yes Hx Pneumococcal Vaccination: 06/13/14 Review of Systems - Review of Systems Constitutional: Recent illness EENT: Nose discharge, Sinus discharge, Throat pain Cardiovascular: No symptoms reported Respiratory: Cough Gastrointestinal: No symptoms reported Genitourinary: No symptoms reported Female Genitourinary: No symptoms reported Musculoskeletal: No symptoms reported Skin: No symptoms reported Hematologic/Lymphatic: No symptoms reported Neurological/Psychological: Headaches -: Yes All other systems reviewed and negative Physical Exam - Vital signs Vitals: Temp Pulse Resp BP Pulse Ox 98.1 F 75 16 143/70 H 99 01/11/20 13:56 01/11/20 13:56 01/11/20 13:56 01/11/20 13:56 01/11/20 13:56 Interpretation: Normal - General General appearance: Appears well, Alert - HEENT Head: Normocephalic, Atraumatic Eyes: Normal Pupils: PERRL Ears: Normal External canal: Normal Tympanic membrane: Normal Sinus: Normal Nasal: Purulent discharge, Swelling Mouth/Lips: Normal Mucous membranes: Normal Pharynx: Post nasal drainage Neck: Normal - Respiratory Respiratory status: No respiratory distress Chest status: Nontender Breath sounds: Nonproductive cough Chest palpation: Normal - Cardiovascular Rhythm: Regular Heart sounds: Normal auscultation Murmur: No - Abdominal Inspection: Normal Distension: No distension Bowel sounds: Normal Tenderness: Nontender Organomegaly: No organomegaly - Back Back: Normal, Nontender - Extremities General upper extremity: Normal inspection, Nontender, Normal color, Normal ROM, Normal temperature General lower extremity: Normal inspection, Nontender, Normal color, Normal ROM, Normal temperature, Normal weight bearing. 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 She is a person under investigation. Patient presents with upper respiratory symptoms worrisome for possible Covid 19. Patient does not have emergency worring symptoms such as difficulty breathing, shortness of breath, chest pain, pressure, confusion or cyanosis. Patient appears suitable for discharge as they are not of an advanced age, do not have any chronic medical conditions such as diabetes, CAD, immune deficiency, chronic lung disease or chronic kidney disease. Patient's vital signs are stable and patient is nontoxic in appearance. Good return precautions have been discussed with patient, patient verbalized understanding and is agreeable with discharge plan of care at this time. - Vital Signs Vital signs: Temp Pulse Resp BP Pulse Ox 97.8 F 69 16 142/63 H 93 01/11/20 16:58 01/11/20 16:58 01/11/20 16:58 01/11/20 16:58 01/11/20 16:58 - Diagnostic Test Radiology reviewed: Image reviewed, Reports reviewed Discharge - Discharge Clinical Impression: Person under investigation for COVID-19 URI (upper respiratory infection) Qualifiers: URI type: unspecified viral URI Qualified Code(s): J06.9 - Acute upper respiratory infection, unspecified Condition: Stable Disposition: HOME, SELF-CARE Additional Instructions: UPPER RESPIRATORY ILLNESS: You have a viral infection of the respiratory passages -- a "cold." This common infection causes nasal congestion, drainage, and often sore throat and cough. It is highly contagious. The disease usually lasts about 10 to 14 days. There is no "cure" for the viral infection -- it must run its course. If there is a complication, such as bacterial infection in the nose, sinuses, middle ear, or bronchial tubes, antibiotics may be required. The antibiotics won't affect the virus. Drink plenty of fluids. A humidifier may help. An expectorant medication or decongestant may make you more comfortable. Use acetaminophen or ibuprofen for fever or aches. See the doctor if fever persists over two days, if there is any significant worsening of your symptoms, or if you simply fail to improve as expected. You have been recommended treatment Flonase which is [id number] 1 spray each nostril twice a day. You could also use salt soda solution gargles. These will help to remove the drainage from the back your throat. Chloraseptic spray was [id number] that will also help with your sore throat. Salt and soda solution gargle 1 quart of water 1 tablespoon of salt 1 teaspoon of baking soda Mixed 3 ingredients together and boil for 1 minute Placed in a covered quart jar Use 1/2 ounce of cold solution to gargle 3 times a day USE OF ACETAMINOPHEN (Tylenol): Acetaminophen may be taken for pain relief or fever control. It's much safer than aspirin, offering a wider range of "safe" dosages. It is safe during . Some brand names are Tylenol, Panadol, Datril, Anacin 3, Tempra, and Liquiprin. Acetaminophen can be repeated every four hours. The following are maximum recommended dosages: >89 pounds or adults 650 mg to 900 mg Acetaminophen can be repeated every four hours. Maximum dose not to exceed 4000 mg a day. SMOKING: If you smoke, you should stop smoking. The tar and chemicals in cigarette smoke are harmful. Smoking has been shown to cause: emphysema chronic bronchitis lung cancer mouth and throat cancer stomach and pancreas cancer premature aging defects In addition, smoking increases ear and lung infections in children of smokers. Patient was provided with discharge information including: As a person under investigation for Covid 19, the [place] department of Health and Human Services, division of public health advises you to adhere to the following guidance until your test results are reported to you. If your test result is positive, you will receive additional information from your provider and your local health department at that time. Remain at home until you are cleared by the health provider or public health authorities. Keep a log of visitors to your home, notify any visitors to your home of your isolation status. If you plan to move to a new address or leave the county, notify the local health department in your County. Call your doctor or seek care if you have an urgent medical need. Before seeking medical care, call ahead to get instructions from the provider before arriving at the medical office clinic or hospital. Notify them that you are b eing tested for the virus that causes Covid 19 so that arrangements can be made, as necessary, to prevent transmission to others in the healthcare setting. Next, notify the local health department in your county. If a medical emergency arises and you need to call 911, inform the first responders that you are being tested for the virus that causes Covid 19. Next, notify the local health department in your county. Prescriptions: Ondansetron [Zofran Odt 4 mg Tablet] 1 tab PO Q6H #15 tab.rapdis Forms: Smoking Cessation Education Referrals: ALFREDO TORRES MD [Primary Care Provider] - Follow up as needed
--- NOTE | 2020-01-11 14:36 | RADIOLOGY REPORT (SQ) ---
EXAM DESCRIPTION: CHEST SINGLE VIEW IMAGES COMPLETED DATE/TIME: 01/11/2020 2:27 pm REASON FOR STUDY: cough COMPARISON: 04/26/2016 EXAM PARAMETERS: NUMBER OF VIEWS: One view. TECHNIQUE: Single frontal radiographic view of the chest acquired. RADIATION DOSE: NA LIMITATIONS: None. FINDINGS: LUNGS AND PLEURA: No opacities, masses or pneumothorax. No pleural effusion. MEDIASTINUM AND HILAR STRUCTURES: No masses. Contour normal. HEART AND VASCULAR STRUCTURES: Heart normal in size. Normal vasculature. BONES: No acute findings. HARDWARE: None in the chest. OTHER: No other significant finding. IMPRESSION: NO ACUTE RADIOGRAPHIC FINDING IN THE CHEST. TECHNICAL DOCUMENTATION: JOB ID: [id number] [employer]- All Rights Reserved Reading location - IP/workstation name: [email or web address]
[2020-01-11 16:21] LABS: A TYPE INFLUENZA AG NEGATIVE (NEGATIVE); B INFLUENZA AG NEGATIVE (NEGATIVE)
[2020-01-11 16:52] VITALS: BP 142/63
== END 2020-01-11 16:57 | disposition home or self-care (01) ==
LOC: ER 13:29
DX: J06.9 Acute upper respiratory infection, unspecified (principal); R51 Headache; R11.2 Nausea with vomiting, unspecified; M79.10 Myalgia, unspecified site; Z20.828 Contact with and (suspected) exposure to other viral communicable diseases; F17.210 Nicotine dependence, cigarettes, uncomplicated; Z88.2 Allergy status to sulfonamides; E11.9 Type 2 diabetes mellitus without complications; Z79.4 Long term (current) use of insulin
CPT/HCPCS: 99284; 87070; 87880; 87804; 71045; U0003; A9270; C9803; 87635

== ENCOUNTER → 2020-07-05 | Outpatient (CLI) | payer MEDICARE ==
[~2020-07-05] MED LIST changes: -CHONDR SU A NA/HYALUR INTRAOC KIT (SURGICARE) ONE; +COVID-19 VACCINE (PFIZER)/PF 30 MCG/0.3 ML VIAL IM ONE; +EPINEPHRINE INJ/PF 1 MG/1 ML AMPULE IM PRN; -EPINEPHRINE INJ/PF 1 MG/1 ML AMPULE ONE; -KETOROLAC TROMETHAMINE 0.45% 4 DROP/0.4 ML DROPERETTE OS PRN; -LIDOCAINE 1% INJ-PF (10 MG/ML) 30 ML SDV ONE
--- OUTSIDE RECORDS SUMMARY | 2020-07-08 10:12 | XMS REPORT ---
:1950 Author Organization [facility] [place] [facility] [place] [address] [place] [address] Care Team Providers Name Role Phone Nickalyssa, A Primary Care Physician Unavailable Allergies, Adverse Reactions, Alerts Allergy Allergy Status Severity Reaction(s) Onset Inactive Treating C aliya Name Type Date Date Clinician sulfa sulfa Active anaphylaxis 2019-10 00:00:0 0 sulfa sulfa Inactive anaphylaxis 2018-09 00:00:0 0 sulfa sulfa Inactive anaphylaxis 2018-04 00:00:0 0 Medications Ordered Filled Start Stop Current Ordering Indication Dosage Frequency Signature Comments Components Medication Medication Date Date Medication? Clinician (SIG) Name Name Etelvinadiance Yes QD 1 tablet 10 mg 2-01 Orally 00:00: Once a day 00 Metoprolol 2017-06 No QD 1 tablet Succinate 06-13 Orally ER 50 mg 00:00: Once a day 00 TEST 2017-06- No as 06-13 directed 00:00: 00:00 Prodigy 00 :00 Test Strips Three time a day Zetia 10 mg Yes QD 1 tablet Orally Once a day Lisinopril Yes QD 1 tablet 20 mg Orally daily Isosorbide Yes QD 1 tablet Mononitrate Orally ER 30 MG Once a day Hydrochloro Yes QD 1 tablet thiazide 25 daily MG Orally 90 days Clopidogrel Yes QD 1 tablet Bisulfate Orally 75 mg daily NovoLog Yes TID as Flexpen 100 directed UNIT/ML Subcutaneo us three times a day Montelukast Yes QD 1 tablet Sodium 10 daily MG Orally 90 days Orally Once a day Victoza 18 Yes QD 1.8 MG MG/3ML Subcutaneo us daily Pioglitazon No QD 1 tablet e HCl 30 mg Orally Once a day Atorvastati Yes QD 1 tablet n Calcium Orally 40 MG daily Aspirin 81 Yes QD 1 tablet MG Orally Once a day Gabapentin Yes TID 1 capsule 300 MG orally three times a day Ranexa 500 Yes 1 tablet MG Twice a day Orally 90 Days 90 Levemir Yes QD 40 units FlexTouch once a day 100 UNIT/ML Subcutaneo us 90 days 30 Xanax 1 MG Yes QD 1 tablet at bedtime Orally once a day Nitrostat Yes as 0.3 MG directed Metoprolol Yes QD 1 tablet Succinate Orally ER 50 mg Once a day Problems Condition Condition Condition Status Onset Resolution Last Treatin g Comments Name Details Category Date Date Treatment Clinician Date Moderate Major Problem Active recurrent depressive 7-11 major disorder, 00:00: depression recurrent, 00 moderate Essential Essential Problem Active hypertensio (primary) 4-02 n hypertensio 00:00: n 00 Polyneuropa Type 1 Problem Active thy due to diabetes 2-14 diabetes mellitus 00:00: mellitus with 00 type I diabetic polyneuropa thy Hypoglycemi Hypoglycemi Problem Active a a, 2-14 unspecified 00:00: 00 Polyarthrit Other Problem Active 2017-06 is polyosteoar 2-13 thritis 00:00: 00 Chronic Chronic Problem Active 2017-06 pain pain 2-13 syndrome syndrome 00:00: 00 Polyneuropa Type 2 Problem Active thy due to diabetes 12-17 type 2 mellitus 00:00: diabetes with 00 mellitus diabetic polyneuropa thy Midline Cystocele, Problem Active cystocele midline 12-17 00:00: 00 Rectocele Rectocele Problem Active 07 00:00: 00 Screening Encounter Problem Active for for 12-17 malignant screening 00:00: neoplasm of for 00 cervix malignant neoplasm of cervix 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 1-18 co-occurren disease of 00:00: t and due [place] 00 to coronary coronary arterioscle artery with rosis unstable angina pectoris 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 disease of 00:00: [place] 00 coronary coronary artery artery without without angina angina pectoris pectoris Nicotine Nicotine Problem Active dependence dependence, 6-28 cigarettes, 00:00: with other 00 nicotine-in duced disorders 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 6-28 neuropathy mellitus 00:00: due to type with 00 1 diabetes diabetic mellitus autonomic (poly)neuro wai Peripheral Peripheral Problem Active vascular vascular 12-08 disease disease, 00:00: unspecified 00 Screening Encounter Problem Active for for 12-08 malignant screening 00:00: neoplasm of mammogram 00 breast for malignant neoplasm of breast Secondary Polycythemi Problem Active 2013-06 polycythemi a, 2-28 a secondary 00:00: 00 Chronic chronic Problem Active 2013-06 obstructive obstructive 0-20 pulmonary pulmonary 00:00: disease disease 00 Type II Diabetes Problem Active 2013-06 diabetes mellitus 0-20 mellitus without 00:00: without mention of 00 complicatio complicatio n n, type II or unspecified type, not stated as uncontrolle d Pure hypercholes Problem Active 2013-06 hypercholes terolemai 0-20 terolemia 00:00: 00 Hypertensio Hypertensio Problem Active 2013-06 n n 0-20 00:00: 00 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 ,bronchial 0-20 without ,intrinsic 00:00: status 00 asthmaticus Depression Depression Problem Active 2013-06 0-20 00:00: 00 Tobacco Nondependen Problem Active 2013-06 user t tobacco 0-20 use 00:00: disorder 00 Anxiety Anxiety Problem Active 2013-06 state state, 0-20 unspecified 00:00: 00 Osteoarthro Osteoarthro Problem Active 2013-06 sis sis 0-20 involving involving 00:00: multiple more than 00 sites but one site, not but not designated specified as as generalized generalized , unspecified site Carpal Carpal Problem Active 2013-06 tunnel tunnel 0-20 syndrome syndrome 00:00: 00 Neurologic Diabetes Problem Active 2013-06 disorder with 0-06 associated neurologica 00:00: with type l 00 II diabetes manifestati mellitus ons, type II or unspecified type, uncontrolle d Not on file Not on file [id number] Procedures Procedure Date / Time Performed Performing Clinician Devic e ANNUAL WELLNESS VST; PPS SUBSQT VST 2019-10-17 00:00:00 ANNUAL DEPRESSION SCREENING 15 MIN 2019-10-17 00:00:00 ANNUAL ALCOHOL MISUSE SCREEN 15 MIN 2019-10-17 00:00:00 flucelvax 2018-04-13 00:00:00 ADMN FLU VAC NO FEE SCHED SAME DAY 2018-04-13 00:00:00 ANNUAL WELLNES VST; PERSNL PPS INIT 2018-04-13 00:00:00 Results Test Description Test Time Test Comments Text Results Atomic Results Result Comments CBC + AUTOMATED DIFF 2019-10-17 00:00:00 Test Item Value Reference Range Comments WBC (test code = WBC) 6.0 4.2-11.8 RBC (test code = RBC) 4.81 3.8-5.0 HEMOGLOBIN (test code = HEMOGLOBIN) 14.7 11.3-14.9 HEMATOCRIT (test code = HEMATOCRIT) 44 34-44.3 MCV (test code = MCV) 92 80.8-97.4 MCH (test code = MCH) 30.6 26.6-33.0 MCHC (test code = MCHC) 33.1 32-34.9 RDW (test code = RDW) 14.9 11.8-15.5 PLATELET (test code = PLATELET) 193 147-365 MPV (test code = MPV) 9.28 6.00-12.00 SEGMENTED% (test code = SEGMENTED%) 62.5 43.7-73.5 SEGMENTED# (test code = SEGMENTED#) 3.8 1.9-7.5 LYMPHOCYTES% (test code = LYMPHOCYTES%) 27.35 17.9-45. 1 LYMPHOCYTES# (test code = LYMPHOCYTES#) 1.6 1-4 MONOCYTES% (test code = MONOCYTES%) 7.1 3.8-10 MONOCYTES# (test code = MONOCYTES#) 0.4 0.2-0.9 EOSINOPHILS% (test code = EOSINOPHILS%) 2.64 0.0-6.1 EOSINOPHILS# (test code = EOSINOPHILS#) 0.16 0.0-0.5 BASOPHILS% (test code = BASOPHILS%) 0.40 0.0-0.9 BASOPHILS# (test code = BASOPHILS#) 0.02 0.0-0.1 COMPREHENSIVE [id number] 00:00:00 Test Item Value Reference Range Comments SODIUM (test code = SODIUM) 139 136-145 POTASSIUM (test code = POTASSIUM) 4.7 3.5-5.1 CHLORIDE (test code = CHLORIDE) 106 98-107 CARBONDIOXIDE (test code = CARBONDIOXIDE) 23.0 17-32 GLUCOSE (test code = GLUCOSE) 302 70-99 BUN (test code = BUN) 14 7-25 CREATININESERUM (test code = CREATININESERUM) 0.69 0. 5-1.2 BUN/CREATININERATIO (test code = BUN/CREATININERATIO) 20 8-28 BILIRUBIN,Total (test code = BILIRUBIN,Total) 0.4 0. 2-1.0 CALCIUM (test code = CALCIUM) 8.2 8.6-10.5 PROTEINTOTAL (test code = PROTEINTOTAL) 6.0 6.6-8.2 ALBUMIN (test code = ALBUMIN) 3.6 3.5-5.7 ALK.PHOSPHATASE (test code = ALK.PHOSPHATASE) 110 34 -104 ALT(SGPT) (test code = ALT(SGPT)) 13 7-52 AST(SGOT) (test code = AST(SGOT)) 15 11-39 GLOBULIN (test code = GLOBULIN) 2.4 1.8-4.0 A/GRATIO (test code = A/GRATIO) 1.5 0.8-2.7 GLOMERULARFILT.RATE (test code = GLOMERULARFILT.RATE) 90 >60 HEMOGLOBIN A1c (HGB AIC)2019-10-17 00:00:00 Test Item Value Reference Range Comments [id number](HGBAIC) (test code = 4548-4) 9.8 4.0-5 .6 LIPID [id number] 00:00:00 Test Item Value Reference Range Comments CHOLESTEROL (test code = CHOLESTEROL) 129 <200 TRIGLYCERIDES (test code = TRIGLYCERIDES) 92 10-149 HDLCHOLESTEROL (test code = HDLCHOLESTEROL) 43 40-1 99 LDL/HDLRATIO (test code = LDL/HDLRATIO) 1.58 0.00-4.9 7 LDLCHOLESTEROL,calc. (test code = 68 <100 LDLCHOLESTEROL,calc.) VLDLCHOLESTEROL,calc. (test code = 18 5-40 VLDLCHOLESTEROL,calc.) CHOLESTEROL/HDLRATIO (test code = 3.00 2.00-5.00 CHOLESTEROL/HDLRATIO) NON-HDLCHOLESTEROL (test code = NON-HDLCHOLESTEROL) 86 0-159 URIC [id number] 00:00:00 Test Item Value Reference Range Comments URICACID (test code = URICACID) 4.1 2.3-6.6 [id number] 00:00:00 Test Item Value Reference Range Comments COLOR (test code = COLOR) YELLOW YELLOW CLARITY (test code = CLARITY) CLEAR CLEAR SPECIFICGRAVITY (test code = SPECIFICGRAVITY) 1.012 1. 005-1.025 pH (test code = pH) 6.0 5.0-8.5 URINEPROTEIN (test code = URINEPROTEIN) NEGATIVE NEGATIVE URINEGLUCOSE (test code = URINEGLUCOSE) >=500 NEGATIVE URINEKETONE (test code = URINEKETONE) NEGATIVE NEGATIVE URINEBILIRUBIN (test code = URINEBILIRUBIN) NEGATIVE NEGA TIVE URINEBLOOD (test code = URINEBLOOD) NEGATIVE NEGATIVE URINENITRITE (test code = URINENITRITE) NEGATIVE NEGATIVE UROBILINOGEN (test code = UROBILINOGEN) 0.2 0.2-1.0 LEUKOCYTE (test code = LEUKOCYTE) NEGATIVE NEGATIVE *PleaseNote: (test code = *PleaseNote:) MICROALBUMIN/CREATINE [id number] 00:00:00 Test Item Value Reference Range Comments MICROALB/CREATRATIO (test code = 68218-1) 140 0-29 CREATININE,URINE (test code = CREATININE,URINE) 30 20-300 TSH + FREE [id number] 00:00:00 Test Item Value Reference Range Comments [id number] (test code = [id number]) 2.209 0.340-4.410 FREET4 (test code = FREET4) 0.95 0.61-1.12 LAB [id number] 00:00:00 Test Item Value Reference Range Comments PDF (test code = PDF) LAB HEMOGLOBIN A1c (HGB AIC)2018-04-13 00:00:00 Test Item Value Reference Range Comments [id number](HGBAIC) (test code = 4548-4) 11.3 4.0-5 .6 CBC + AUTOMATED [id number] 00:00:00 Test Item Value Reference Range Comments WBC (test code = WBC) 5.0 4.2-11.8 RBC (test code = RBC) 4.61 3.8-5.0 HEMOGLOBIN (test code = HEMOGLOBIN) 14.0 11.3-14.9 HEMATOCRIT (test code = HEMATOCRIT) 43 34-44.3 MCV (test code = MCV) 92 80.8-97.4 MCH (test code = MCH) 30.4 26.6-33.0 MCHC (test code = MCHC) 32.9 32-34.9 RDW (test code = RDW) 14.6 11.8-15.5 PLATELET (test code = PLATELET) 176 147-365 MPV (test code = MPV) 8.92 6.00-12.00 SEGMENTED% (test code = SEGMENTED%) 62.8 43.7-73.5 SEGMENTED# (test code = SEGMENTED#) 3.1 1.9-7.5 LYMPHOCYTES% (test code = LYMPHOCYTES%) 28.58 17.9-45. 1 LYMPHOCYTES# (test code = LYMPHOCYTES#) 1.4 1-4 MONOCYTES% (test code = MONOCYTES%) 6.5 3.8-10 MONOCYTES# (test code = MONOCYTES#) 0.3 0.2-0.9 EOSINOPHILS% (test code = EOSINOPHILS%) 1.86 0.0-6.1 EOSINOPHILS# (test code = EOSINOPHILS#) 0.09 0.0-0.5 BASOPHILS% (test code = BASOPHILS%) 0.26 0.0-0.9 BASOPHILS# (test code = BASOPHILS#) 0.01 0.0-0.1 [facility] [id number] 00:00:00 Test Item Value Reference Range Comments SODIUM (test code = SODIUM) 138 136-145 POTASSIUM (test code = POTASSIUM) 4.8 3.5-5.1 CHLORIDE (test code = CHLORIDE) 104 98-107 CARBONDIOXIDE (test code = CARBONDIOXIDE) 24.0 17-32 GLUCOSE (test code = GLUCOSE) 534 70-99 BUN (test code = BUN) 13 7-25 CREATININESERUM (test code = CREATININESERUM) 0.92 0. 5-1.2 BUN/CREATININERATIO (test code = BUN/CREATININERATIO) 14 8-28 BILIRUBIN,Total (test code = BILIRUBIN,Total) 0.3 0. 2-1.0 CALCIUM (test code = CALCIUM) 8.3 8.6-10.5 PROTEINTOTAL (test code = PROTEINTOTAL) 5.6 6.6-8.2 ALBUMIN (test code = ALBUMIN) 3.2 3.5-5.7 ALK.PHOSPHATASE (test code = ALK.PHOSPHATASE) 113 34 -104 ALT(SGPT) (test code = ALT(SGPT)) 13 7-52 AST(SGOT) (test code = AST(SGOT)) 14 11-39 GLOBULIN (test code = GLOBULIN) 2.4 1.8-4.0 A/GRATIO (test code = A/GRATIO) 1.3 0.8-2.7 GLOMERULARFILT.RATE (test code = GLOMERULARFILT.RATE) 65 >60 FREE [id number] 00:00:00 Test Item Value Reference Range Comments FREET4 (test code = FREET4) 1.44 0.61-1.12 PDF (test code = PDF) LAB LIPID [id number] 00:00:00 Test Item Value Reference Range Comments CHOLESTEROL (test code = CHOLESTEROL) 85 <200 TRIGLYCERIDES (test code = TRIGLYCERIDES) 104 10-149 HDLCHOLESTEROL (test code = HDLCHOLESTEROL) 39 40-1 99 LDL/HDLRATIO (test code = LDL/HDLRATIO) 0.64 0.00-4.9 7 LDLCHOLESTEROL,calc. (test code = 25 <100 LDLCHOLESTEROL,calc.) VLDLCHOLESTEROL,calc. (test code = 21 5-40 VLDLCHOLESTEROL,calc.) CHOLESTEROL/HDLRATIO (test code = 2.18 2.00-5.00 CHOLESTEROL/HDLRATIO) NON-HDLCHOLESTEROL (test code = NON-HDLCHOLESTEROL) 46 0-159 TSH 3RD [id number] 00:00:00 Test Item Value Reference Range Comments [id number] (test code = [id number]) 1.063 0.340-4.410 URIC [id number] 00:00:00 Test Item Value Reference Range Comments URICACID (test code = URICACID) 3.4 2.3-6.6 [id number] 00:00:00 Test Item Value Reference Range Comments COLOR (test code = COLOR) YELLOW YELLOW CLARITY (test code = CLARITY) CLOUDY CLEAR SPECIFICGRAVITY (test code = SPECIFICGRAVITY) 1.025 1. 005-1.025 pH (test code = pH) 5.0 5.0-8.5 URINEPROTEIN (test code = URINEPROTEIN) NEGATIVE NEGATIVE URINEGLUCOSE (test code = URINEGLUCOSE) >=500 NEGATIVE URINEKETONE (test code = URINEKETONE) NEGATIVE NEGATIVE URINEBILIRUBIN (test code = URINEBILIRUBIN) NEGATIVE NEGA TIVE URINEBLOOD (test code = URINEBLOOD) NEGATIVE NEGATIVE URINENITRITE (test code = URINENITRITE) NEGATIVE NEGATIVE UROBILINOGEN (test code = UROBILINOGEN) 0.2 0.2-1.0 LEUKOCYTE (test code = LEUKOCYTE) NEGATIVE NEGATIVE *PleaseNote: (test code = *PleaseNote:) PDF (test code = PDF) LAB Assessments Condition Name Status Diagnosis Date Treating Clinici an - Major depressive disorder, recurrent, Active Ojebuoboh, [place] moderate F33.1 - Encounter for general adult medical Active O[place]ebuoboh, [place] examination without abnormal findings Z00.00 - Type 2 diabetes mellitus with diabetic Active O[place]ebuoboh, [place] polyneuropathy E11.42 - 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, [place] coronary artery without angina pectoris I25.10 - Type 2 diabetes mellitus with diabetic Active [place]oboh, [place] polyneuropathy E11.42 - Type 1 diabetes mellitus with diabetic Active O[place]oboh, [place] autonomic (poly)neuropathy E10.43 - Type 1 diabetes mellitus with diabetic Active O[place]ebuoboh, [place] autonomic (poly)neuropathy E10.43 - Type 2 diabetes mellitus with diabetic Active Ojebuoboh, [place] polyneuropathy E11.42 - Type 2 diabetes mellitus with diabetic Active Ojebuoboh, [place] polyneuropathy E11.42 - Body mass index (BMI) 28.0-28.9, adult Active Ojebuoboh, [place] Z68.28 - Peripheral vascular disease, unspecified Active O[place]ebuoboh, [place] I73.9 - Nicotine dependence, cigarettes, with Active Ojebuoboh, [place] other nicotine-induced disorders F17.218 - Type 1 diabetes mellitus with diabetic Active O[place]ebuoboh, [place] autonomic (poly)neuropathy E10.43 - Hypoglycemia, unspecified E16.2 Active O[place]ebuoboh, [place] - Encounter for screening mammogram for Active Ojebuoboh, [place] malignant neoplasm of breast Z12.31 - Type 2 diabetes mellitus with diabetic Active Ojebuoboh, [place] polyneuropathy E11.42 - Pneumonia, unspecified organism J18.9 Active Ojebuoboh, [place] - Type 1 diabetes mellitus with diabetic Active Ojebuoboh, [place] autonomic (poly)neuropathy E10.43 - Other polyosteoarthritis M15.8 Active Ojebuoboh, [place] - 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, [place] coronary artery without angina pectoris I25.10 - Essential (primary) hypertension I10 Active Ojebuoboh, [place] - Type 2 diabetes mellitus with diabetic Active Ojebuoboh, [place] polyneuropathy E11.42 - Chronic pain syndrome G89.4 Active Oj ebuoboh, [place] - Other polyosteoarthritis M15.8 Active Ojebuoboh, [place] - Type 2 diabetes mellitus with diabetic Active Ojebuoboh, [place] polyneuropathy E11.42 - Encounter for immunization Z23 Active Ojebuoboh, [place] - Encounter for screening mammogram for Active Ojebuoboh, [place] malignant neoplasm of breast Z12.31 - Encounter for general adult medical Active Ojebuoboh, [place] examination without abnormal findings Z00.00 - Type 1 diabetes mellitus with diabetic Active Ojebuoboh, [place] autonomic (poly)neuropathy E10.43 - Type 2 diabetes mellitus with diabetic Active Ojebuoboh, [place] polyneuropathy E11.42 - Encounter for screening mammogram for Active Ojebuoboh, [place] malignant neoplasm of breast Z12.31 - Cystocele, midline N81.11 Active Ojeb uoboh, [place] - Rectocele N81.6 Active Ojebuoboh, Ibi isac - Encounter for screening for malignant Active Ojebuoboh, [place] neoplasm of cervix Z12.4 - 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, [place] coronary artery with unstable angina pectoris I25.110 - Type 1 diabetes mellitus with diabetic Active Ojebuoboh, [place] autonomic (poly)neuropathy E10.43 - Type 1 diabetes mellitus with diabetic Active Ojebuoboh, [place] autonomic (poly)neuropathy E10.43 - 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, [place] coronary artery without angina pectoris I25.10 - Type 1 diabetes mellitus with diabetic Active Ojebuoboh, [place] autonomic (poly)neuropathy E10.43 - Nicotine dependence, cigarettes, with Active Ojebuoboh, [place] other nicotine-induced disorders F17.218 - Peripheral vascular disease, unspecified Active O[place]ebuoboh, [place] I73.9 - Encounter for screening mammogram for Active Ojebuoboh, [place] malignant neoplasm of breast Z12.31 - Diabetes with neurological Active Oje buoboh, [place] manifestations, type II or unspecified type, uncontrolled 250.62 - Diabetes mellitus without mention of Active Ojebuoboh, [place] complication, type II or unspecified type, not stated as uncontrolled 250.00 - Renal colic 788.0 Active Ojebuoboh, I bikunle - Diabetes with neurological Active Oje buoboh, [place] manifestations, type II or unspecified type, uncontrolled 250.62 - Need for prophylactic vaccination against Active Ojebuoboh, [place] streptococcus pneumoniae (pneumococcus) V03.82 - sinusitis,acute 461.9 Active Ojebuobo h, [place] - Diabetes with neurological Active Oje buoboh, [place] manifestations, type II or unspecified type, uncontrolled 250.62 - Dermatophytosis of nail 110.1 Active Ojebuoboh, [place] Encounters Start End Encounter Admission Attending Care Care Encounter ID Date/Time Date/Time Type Type Clinicians Facility Department 2020-01-17 2020-01-17 [id number] 00:00:00 00:00:00 JOSE GARCIA 2020-01-11 2020-01-11 Outpatient [facility] [id number] 00:00:00 23:59:00 [id number] 2020-01-11 2020-01-11 Outpatient [facility] [id number] 11:40:00 12:00:00 2020-01-11 2020-01-11 Outpatient [facility] [id number] 00:00:00 00:00:00 2020-01-11 2020-01-11 Outpatient [facility] [id number] 00:00:00 00:00:00 2019-10-24 2019-10-24 [id number] 00:00:00 00:00:00 PA PA 2019-10-23 2019-10-23 [facility] [id number] 00:00:00 00:00:00 PA PA 2019-10-17 2019-10-17 [facility] [id number] 00:00:00 00:00:00 PA 2019-08-17 2019-08-17 [facility] [id number] 00:00:00 00:00:00 PA 2019-07-23 2019-07-23 [facility] [id number] 00:00:00 00:00:00 PA PA 2019-01-15 2019-01-15 [facility] 30 [id number] 00:00:00 00:00:00 PA PA 2019-01-15 2019-01-15 [facility] 30 [id number] 00:00:00 00:00:00 PA PA 2018-10-26 2018-10-26 [facility] [id number] 00:00:00 00:00:00 PA 2018-10-25 2018-10-25 [facility] 29 [id number] 00:00:00 00:00:00 PA PA 2018-10-10 2018-10-10 [facility] [id number] 00:00:00 00:00:00 PA PA 2018-10-10 2018-10-10 [facility] [id number] 00:00:00 00:00:00 PA PA 2018-07-27 2018-07-27 [facility] 28 [id number] 00:00:00 00:00:00 PA PA 2018-07-25 2018-07-25 [facility] 28 [id number] 00:00:00 00:00:00 PA PA 2018-07-20 2018-07-20 [facility] 28 [id number] 00:00:00 00:00:00 PA PA 2018-07-14 2018-07-14 [facility] 28 [id number] 00:00:00 00:00:00 PA PA 2018-07-05 2018-07-05 [facility] 28 [id number] 00:00:00 00:00:00 PA PA 2018-05-25 2018-05-25 [facility] 27 [id number] 00:00:00 00:00:00 PA PA 2018-05-25 2018-05-25 [facility] 28 [id number] 00:00:00 00:00:00 PA PA 2018-04-13 2018-04-13 [facility] 27 [id number] 00:00:00 00:00:00 PA PA 2018-04-13 2018-04-13 [facility] 27 [id number] 00:00:00 00:00:00 PA PA 2017-02-25 2017-02-25 [facility] 23 [id number] 00:00:00 00:00:00 PA PA 2017-02-25 2017-02-25 [facility] 23 [id number] 00:00:00 00:00:00 PA PA 2017-02-23 2017-02-23 [facility] 22 [id number] 00:00:00 00:00:00 PA PA 2017-02-23 2017-02-23 [facility] 23 [id number] 00:00:00 00:00:00 PA PA 2016-12-17 2016-12-17 [facility] 22 [id number] 00:00:00 00:00:00 PA PA 2016-06-18 2016-06-18 [facility] 21 [id number] 00:00:00 00:00:00 PA PA 2016-05-04 2016-05-04 [facility] 20 [id number] 00:00:00 00:00:00 PA PA 2016-04-26 2016-04-26 [facility] 20 [id number] 00:00:00 00:00:00 PA PA 2016-04-21 2016-04-21 [facility] 20 [id number] 00:00:00 00:00:00 PA PA 2016-04-20 2016-04-20 [facility] 20 [id number] 00:00:00 00:00:00 PA PA 2016-04-12 2016-04-12 [facility] 20 [id number] 00:00:00 00:00:00 PA PA 2015-12-26 2015-12-26 [facility] 19 [id number] 00:00:00 00:00:00 PA PA 2015-12-25 2015-12-25 [facility] 19 [id number] 00:00:00 00:00:00 PA PA 2015-12-19 2015-12-19 [facility] 19 [id number] 00:00:00 00:00:00 PA PA 2015-12-09 2015-12-09 [facility] 19 [id number] 00:00:00 00:00:00 PA PA 2014-05-27 2014-05-27 [facility] 14 [id number] 00:00:00 00:00:00 PA PA 2014-05-22 2014-05-22 [facility] 14 [id number] 00:00:00 00:00:00 PA PA 2014-05-22 2014-05-22 [facility] 14 [id number] 00:00:00 00:00:00 PA PA 2014-04-22 2014-04-22 [facility] 14 [id number] 00:00:00 00:00:00 PA PA 2014-03-20 2014-03-20 [facility] 14 [id number] 00:00:00 00:00:00 PA PA 2014-03-18 2014-03-18 [facility] 14 [id number] 00:00:00 00:00:00 PA PA Immunizations Ordered Immunization Filled Immunization Date Status Commen ts Refusal Reason Name Name OSWALD 2018-04-13 Completed 10:58:00 Payers Payer Name Policy Type Policy Number Effective Date Expiration D ate MEDICARE PART A AND [id number] 2011 00:00:00 PART B Plan of Treatment Planned Activity Planned Date Details Comments Future Scheduled Test [code = ] Future Scheduled Test [code = ] Future Scheduled Test [code = ] Future Scheduled Test [code = ] Future Scheduled Test [code = ] Future Scheduled Test [code = ] Future Scheduled Test [code = ] Future Scheduled Test [code = ] Social History This patient has no known social history. Vital Signs Vital Name Observation Time Observation Value Comments height 2019-10-17 09:00:00 63 [in_us] weight 2019-10-17 09:00:00 187 [lb_av] bmi 2019-10-17 09:00:00 33.12 kg/m2 heart rate 2019-10-17 09:00:00 71 /min blood pressure systolic 2019-10-17 09:00:00 160 mm[Hg] blood pressure diastolic 2019-10-17 09:00:00 76 mm[Hg] height 2018-10-10 11:30:00 63 [in_us] weight 2018-10-10 11:30:00 162.2 [lb_av] bmi 2018-10-10 11:30:00 28.73 kg/m2 heart rate 2018-10-10 11:30:00 59 /min blood pressure systolic 2018-10-10 11:30:00 146 mm[Hg] blood pressure diastolic 2018-10-10 11:30:00 70 mm[Hg] height 2018-04-13 09:15:00 63 [in_us] weight 2018-04-13 09:15:00 157.2 [lb_av] bmi 2018-04-13 09:15:00 27.84 kg/m2 heart rate 2018-04-13 09:15:00 67 /min blood pressure systolic 2018-04-13 09:15:00 151 mm[Hg] blood pressure diastolic 2018-04-13 09:15:00 69 mm[Hg]
== END ==
LOC: EMPHEALTH 09:37
PROVIDERS: ATTEND Internal Medicine
DX: Z23 Encounter for immunization (principal)
CPT/HCPCS: 91300